=== PATIENT | male | born 2000 | race African-American/Black ===

== ENCOUNTER 2018-06-07 12:15 | Emergency (ER) | payer MEDICAID, OTHER ==
[~2018-06-07] VITALS: Ht 180.3 cm; Wt 77.0 kg
[2018-06-07] MEDS ORDERED: CEFUROXIME AXETIL 500MG TABLET PO ONE (14:30)
[2018-06-07] MEDS ORDERED: CLINDAMYCIN HCL 150MG CAPSULE PO ONE (14:30)
[2018-06-07 16:16] VITALS: BP 124/74
== END 2018-06-07 16:18 | disposition home or self-care (01) ==
LOC: ER 12:15
DX: L03.213 Periorbital cellulitis (principal); H00.033 Abscess of eyelid right eye, unspecified eyelid
CPT/HCPCS: 99283

== ENCOUNTER 2018-10-01 15:48 | Emergency (ER) | payer MEDICAID, OTHER ==
[~2018-10-01] VITALS: Ht 180.3 cm; Wt 90.0 kg
[2018-10-01 15:49] VITALS: BP 110/75
== END 2018-10-01 21:31 | disposition left against medical advice (07) ==
LOC: ER 15:48
DX: H57.89 Other specified disorders of eye and adnexa (principal); Z53.21 Procedure and treatment not carried out due to patient leaving prior to being seen by health care provider